=== PATIENT | female | born 1935 | race Caucasian/White ===

== ENCOUNTER 2018-06-08 14:13 | Inpatient (IN) | payer OTHER ==
[~2018-06-08 14:13] MED LIST: COZAAR100 MG PO; PANADOL MAXIMU500 MG; SYNTHROID75 MCG PO; TOPROL PO; [UNRECOGNIZED DRUG - OTHER] PO
[2018-06-10] MEDS ORDERED: TOPROL XL25 M1 PO (11:36)
[2018-06-10] MEDS ORDERED: ZYLOPRIM100 M1 PO (11:38)
[2018-06-27] MEDS ORDERED: LEVOTHYROXINE88 MCG PO (14:05)
[2018-06-27] MEDS ORDERED: TOPROL XL25 M1 PO (14:05)
[2018-06-27] MEDS ORDERED: CARTIA XT240 MG PO (14:05)
[2018-06-27] MEDS ORDERED: SIMVASTATIN40 MG PO (14:05)
[2018-06-27] MEDS ORDERED: ZYLOPRIM100 M1 PO (14:05)
== END 2018-06-27 14:42 | disposition home or self-care (01) | DRG 181 ==
LOC: MEDJ 14:13
PROC: 4A033R1 Measurement of Arterial Saturation, Peripheral, Percutaneous Approach (ICD-10-PCS; 2018-06-08)
PROC: B246ZZZ Ultrasonography of Right and Left Heart (ICD-10-PCS; 2018-06-08)
PROC: BB4BZZZ Ultrasonography of Pleura (ICD-10-PCS; 2018-06-08)
PROC: 0W9B3ZX Drainage of Left Pleural Cavity, Percutaneous Approach, Diagnostic (ICD-10-PCS; principal; 2018-06-09)
PROC: 3E0F7GC Introduction of Other Therapeutic Substance into Respiratory Tract, Via Natural or Artificial Opening (ICD-10-PCS; 2018-06-09)
PROC: 0W993ZX Drainage of Right Pleural Cavity, Percutaneous Approach, Diagnostic (ICD-10-PCS; 2018-06-12)
PROC: BW24ZZZ Computerized Tomography (CT Scan) of Chest and Abdomen (ICD-10-PCS; 2018-06-12)
PROC: BW25Y0Z Computerized Tomography (CT Scan) of Chest, Abdomen and Pelvis using Other Contrast, Unenhanced and Enhanced (ICD-10-PCS; 2018-06-23)
PROC: 0W9B3ZX Drainage of Left Pleural Cavity, Percutaneous Approach, Diagnostic (ICD-10-PCS; 2018-06-26)
DX: C78.02 Secondary malignant neoplasm of left lung (principal); J44.1 Chronic obstructive pulmonary disease with (acute) exacerbation; J91.0 Malignant pleural effusion; N17.8 Other acute kidney failure; I13.10 Hypertensive heart and chronic kidney disease without heart failure, with stage 1 through stage 4 chronic kidney disease, or unspecified chronic kidney disease; I25.10 Atherosclerotic heart disease of native coronary artery without angina pectoris; E03.8 Other specified hypothyroidism; K21.9 Gastro-esophageal reflux disease without esophagitis; M81.0 Age-related osteoporosis without current pathological fracture; M06.89 Other specified rheumatoid arthritis, multiple sites; R09.02 Hypoxemia; K44.9 Diaphragmatic hernia without obstruction or gangrene; D63.0 Anemia in neoplastic disease; N18.3 Chronic kidney disease, stage 3 (moderate); Z90.12 Acquired absence of left breast and nipple; C80.1 Malignant (primary) neoplasm, unspecified; E78.49 Other hyperlipidemia

== ENCOUNTER 2018-07-22 10:13 | Outpatient (CLI) | payer OTHER ==
[~2018-07-22 10:13] MED LIST changes: +CARTIA XT240 MG PO; +LEVOTHYROXINE88 MCG PO; +SIMVASTATIN40 MG PO; +TOPROL XL25 M1 PO; +ZYLOPRIM100 M1 PO
== END 2018-07-22 11:17 | disposition home or self-care (01) ==
LOC: RAD 10:13
DX: J43.2 Centrilobular emphysema (principal); J91.0 Malignant pleural effusion

== ENCOUNTER 2019-09-14 13:57 | Inpatient (IN) | payer OTHER ==
[~2019-09-14] VITALS: Ht 160 cm; Wt 55.8 kg
[2019-09-14] MEDS ORDERED: DILTIAZEM 24HR180 MG PO (14:34)
[2019-09-14] MEDS ORDERED: TOPROL XL50 M1 PO (14:35)
[2019-09-14] MEDS ORDERED: SYNTHROID100 MCG PO (14:35)
--- NOTE | 2019-09-14 14:35 | NUR ---
SE RECIBE FEMINA DE 84 ANOS,ALERTA,ORIENTADA EN ROWDY TRINH ESFERAS,AMBULANDO CON ASISTENCIA DE [place] , JUNTO A FAMILIAR. PACIENTE REFIERE DIFICULTAD RESPIRATORIA Y CATARRO CON EVOLUCION DE DOS FERRIS. PACIENTE PADECE DE AGUA EN PULMONES. . INTERNISTA DIMAS ASTUDILLO.
--- NOTE | 2019-09-14 15:30 | NUR ---
PTE EVALUADA POR EL DR TELLEZ QUIEN [place] EL [place]. SE ORIENTA SOBRE EL MISMO, LO CUAL PTE Y FAMILIAR REFIEREN ENTENDER. SE REALIZAN PRUEBAS DE LABORATORIO Y SE ADMINISTRAN MEDICAMENTOS MOIZ ORDEN MEDICA Y SIGUIENDO MEDIDAS ASEPTICAS. ROBB X PORTABLE NOTIFICADOS A PERSONAL DE TURNO. TERAPIAS RESPIRATORIAS Y ABG NOTIFICADAS A PERSONAL DE TURNO.
--- NOTE | 2019-09-14 17:29 | NUR ---
SE COLOCA CANULA NASAL MOIZ ORDEN MEDICA, AL MOMENTO SATURANDO 94%, SE MANTIENE BAJO OBSERVACION.
[2019-09-17] MEDS ORDERED: DILTIAZEM 24HR180 MG PO (14:26)
[2019-09-17] MEDS ORDERED: LOSARTAN POTAS100 MG PO (14:26)
[2019-09-17] MEDS ORDERED: TOPROL XL50 M1 PO (14:27)
[2019-09-17] MEDS ORDERED: ZYLOPRIM100 M1 PO (14:27)
[2019-09-17] MEDS ORDERED: LEVOTHYROXINE100 MCG PO (14:27)
== END 2019-09-17 14:44 | disposition home or self-care (01) | DRG 598 ==
LOC: ER 13:57 → MEDJ 21:06
PROVIDERS: ADMIT Internal Medicine
PROC: 4A033R1 Measurement of Arterial Saturation, Peripheral, Percutaneous Approach (ICD-10-PCS; 2019-09-14)
PROC: 3E0F7GC Introduction of Other Therapeutic Substance into Respiratory Tract, Via Natural or Artificial Opening (ICD-10-PCS; 2019-09-14)
PROC: 0W9B30Z Drainage of Left Pleural Cavity with Drainage Device, Percutaneous Approach (ICD-10-PCS; principal; 2019-09-15)
DX: C50.812 Malignant neoplasm of overlapping sites of left female breast (principal); J91.0 Malignant pleural effusion; J44.1 Chronic obstructive pulmonary disease with (acute) exacerbation; J45.41 Moderate persistent asthma with (acute) exacerbation; N17.8 Other acute kidney failure; J93.83 Other pneumothorax; N18.3 Chronic kidney disease, stage 3 (moderate); I12.9 Hypertensive chronic kidney disease with stage 1 through stage 4 chronic kidney disease, or unspecified chronic kidney disease; R09.02 Hypoxemia; Z17.0 Estrogen receptor positive status [ER+]

== ENCOUNTER 2019-10-15 10:33 | Inpatient (IN) | payer OTHER ==
[~2019-10-15] VITALS: Ht 160 cm; Wt 56.2 kg
[~2019-10-15 10:33] MED LIST changes: +DILTIAZEM 24HR180 MG PO; +LEVOTHYROXINE100 MCG PO; +LOSARTAN POTAS100 MG PO; +SYNTHROID100 MCG PO; +TOPROL XL50 M1 PO
== END 2019-10-28 18:13 | disposition home or self-care (01) | DRG 180 ==
LOC: ER 10:33 → MEDJ 17:47 → SEC-K 17:47 → MEDJ 18:54
PROVIDERS: ADMIT Internal Medicine
PROC: 4A033R1 Measurement of Arterial Saturation, Peripheral, Percutaneous Approach (ICD-10-PCS; 2019-10-15)
PROC: 3E0F7GC Introduction of Other Therapeutic Substance into Respiratory Tract, Via Natural or Artificial Opening (ICD-10-PCS; 2019-10-15)
PROC: 0W9B30Z Drainage of Left Pleural Cavity with Drainage Device, Percutaneous Approach (ICD-10-PCS; principal; 2019-10-18)
PROC: B246ZZZ Ultrasonography of Right and Left Heart (ICD-10-PCS; 2019-10-18)
PROC: BB24ZZZ Computerized Tomography (CT Scan) of Bilateral Lungs (ICD-10-PCS; 2019-10-18)
PROC: 0W9B30Z Drainage of Left Pleural Cavity with Drainage Device, Percutaneous Approach (ICD-10-PCS; 2019-10-21)
DX: C78.02 Secondary malignant neoplasm of left lung (principal); I50.43 Acute on chronic combined systolic (congestive) and diastolic (congestive) heart failure; J91.0 Malignant pleural effusion; N17.8 Other acute kidney failure; J44.1 Chronic obstructive pulmonary disease with (acute) exacerbation; J45.41 Moderate persistent asthma with (acute) exacerbation; E87.2 Acidosis; J98.19 Other pulmonary collapse; C80.1 Malignant (primary) neoplasm, unspecified; K44.9 Diaphragmatic hernia without obstruction or gangrene; I12.9 Hypertensive chronic kidney disease with stage 1 through stage 4 chronic kidney disease, or unspecified chronic kidney disease; I11.0 Hypertensive heart disease with heart failure; I08.3 Combined rheumatic disorders of mitral, aortic and tricuspid valves; N18.2 Chronic kidney disease, stage 2 (mild); D63.0 Anemia in neoplastic disease; Z85.3 Personal history of malignant neoplasm of breast; Z08 Encounter for follow-up examination after completed treatment for malignant neoplasm

== ENCOUNTER 2020-03-13 13:15 | Outpatient (CLI) | payer OTHER | END 2020-03-13 13:25 | disposition home or self-care (01) | LOC: TOM 13:15 | PROVIDERS: ATTEND Internal Medicine Hematology & Oncology | DX: C50.812 Malignant neoplasm of overlapping sites of left female breast (principal); D63.1 Anemia in chronic kidney disease; N18.4 Chronic kidney disease, stage 4 (severe); E03.8 Other specified hypothyroidism; E78.2 Mixed hyperlipidemia; Z90.12 Acquired absence of left breast and nipple ==

== ENCOUNTER 2020-05-09 07:31 | Outpatient (CLI) | payer OTHER | END 2020-05-09 07:33 | disposition home or self-care (01) | LOC: RAD 07:31 | PROVIDERS: ATTEND Internal Medicine Pulmonary Disease | DX: J43.2 Centrilobular emphysema (principal); J91.0 Malignant pleural effusion; C50.919 Malignant neoplasm of unspecified site of unspecified female breast ==

== ENCOUNTER 2020-05-30 11:23 | Outpatient (CLI) | payer OTHER | END 2020-05-30 11:33 | disposition home or self-care (01) | LOC: RAD 11:23 | PROVIDERS: ATTEND Internal Medicine | DX: R07.89 Other chest pain (principal) ==

== ENCOUNTER 2020-06-14 07:30 | Outpatient (CLI) | payer OTHER | END 2020-06-14 07:35 | disposition home or self-care (01) | LOC: RAD 07:30 | PROVIDERS: ATTEND Internal Medicine Pulmonary Disease | DX: J91.8 Pleural effusion in other conditions classified elsewhere (principal); C50.911 Malignant neoplasm of unspecified site of right female breast ==

== ENCOUNTER 2020-08-08 07:29 | Outpatient (CLI) | payer OTHER | END 2020-08-08 07:37 | disposition home or self-care (01) | LOC: TOM 07:29 | PROVIDERS: ATTEND Internal Medicine Hematology & Oncology | DX: K44.9 Diaphragmatic hernia without obstruction or gangrene (principal); C50.812 Malignant neoplasm of overlapping sites of left female breast; C78.02 Secondary malignant neoplasm of left lung; D63.1 Anemia in chronic kidney disease; E03.8 Other specified hypothyroidism; E78.2 Mixed hyperlipidemia; I10 Essential (primary) hypertension; Z90.12 Acquired absence of left breast and nipple ==

== ENCOUNTER 2020-12-11 07:14 | Outpatient (CLI) | payer OTHER | END 2020-12-11 07:34 | disposition home or self-care (01) | LOC: RAD 07:14 | PROVIDERS: ATTEND Internal Medicine Hematology & Oncology | DX: I10 Essential (primary) hypertension (principal); Z12.31 Encounter for screening mammogram for malignant neoplasm of breast; C78.02 Secondary malignant neoplasm of left lung; E03.8 Other specified hypothyroidism; E78.2 Mixed hyperlipidemia; Z90.12 Acquired absence of left breast and nipple; C15.4 Malignant neoplasm of middle third of esophagus; C78.01 Secondary malignant neoplasm of right lung; J91.8 Pleural effusion in other conditions classified elsewhere ==

== ENCOUNTER 2021-09-13 07:14 | Outpatient (CLI) | payer OTHER | END 2021-09-13 07:19 | disposition home or self-care (01) | LOC: RAD 07:14 | PROVIDERS: ATTEND Internal Medicine | DX: J90 Pleural effusion, not elsewhere classified (principal) ==

== ENCOUNTER 2021-12-31 13:48 | Inpatient (IN) | payer OTHER ==
[~2021-12-31] VITALS: Ht 160 cm; Wt 48.5 kg
[2022-01-01] MEDS ORDERED: PANTOPRAZOLE SO40 MG (11:14)
[2022-01-01] MEDS ORDERED: ONDANSETRON HCL8 MG (11:14)
[2022-01-01] MEDS ORDERED: GABAPENTIN100 M2 (11:14)
[2022-01-01] MEDS ORDERED: EXEMESTANE25 MG (11:14)
[2022-01-01] MEDS ORDERED: OMEPRAZOLE20 MG (11:14)
[2022-01-01] MEDS ORDERED: [UNRECOGNIZED DRUG - OTHER] (11:15)
[2022-01-01] MEDS ORDERED: ABANEU-SL TABL1 EACH (11:15)
[2022-01-01] MEDS ORDERED: FOLIVANE-F CAP1 EACH (11:15)
[2022-01-01] MEDS ORDERED: PRE PROTEIN 2030 ML (11:15)
[2022-01-01] MEDS ORDERED: ALPRAZOLAM0.5 MG (11:16)
[2022-01-01] MEDS ORDERED: CALCITRIOL0.25 MCG (11:16)
== END 2022-01-03 23:41 | disposition home or self-care (01) | DRG 375 ==
LOC: ER 13:48 → SURH 23:31
PROVIDERS: ADMIT Internal Medicine; ATTEND Internal Medicine
PROC: 30233N1 Transfusion of Nonautologous Red Blood Cells into Peripheral Vein, Percutaneous Approach (ICD-10-PCS; principal; 2022-01-01)
DX: C78.6 Secondary malignant neoplasm of retroperitoneum and peritoneum (principal); D63.0 Anemia in neoplastic disease; N17.8 Other acute kidney failure; E86.0 Dehydration; J91.0 Malignant pleural effusion; T45.1X5A Adverse effect of antineoplastic and immunosuppressive drugs, initial encounter; D53.0 Protein deficiency anemia; E87.5 Hyperkalemia; C50.912 Malignant neoplasm of unspecified site of left female breast; I12.9 Hypertensive chronic kidney disease with stage 1 through stage 4 chronic kidney disease, or unspecified chronic kidney disease; N18.32 Chronic kidney disease, stage 3b; J44.9 Chronic obstructive pulmonary disease, unspecified; Z99.81 Dependence on supplemental oxygen

== ENCOUNTER 2022-05-22 14:36 | Inpatient (IN) | payer OTHER ==
[~2022-05-22] VITALS: Ht 157.5 cm; Wt 59.0 kg
[~2022-05-22 14:36] MED LIST changes: +ABANEU-SL TABL1 EACH; +ALPRAZOLAM0.5 MG; +CALCITRIOL0.25 MCG; +EXEMESTANE25 MG; +FOLIVANE-F CAP1 EACH; +GABAPENTIN100 M2; +OMEPRAZOLE20 MG; +ONDANSETRON HCL8 MG; +PANTOPRAZOLE SO40 MG; +PRE PROTEIN 2030 ML; +[UNRECOGNIZED DRUG - OTHER]
[2022-05-29] MEDS ORDERED: CLONIDINE HCL0.2 MG (08:21)
[2022-05-29] MEDS ORDERED: DILTIAZEM 24HR240 MG (08:22)
[2022-05-29] MEDS ORDERED: PANTOPRAZOLE SO40 MG (08:23)
[2022-05-29] MEDS ORDERED: GABAPENTIN100 M2 (08:23)
[2022-05-29] MEDS ORDERED: LOSARTAN POTAS100 MG (08:23)
[2022-05-29] MEDS ORDERED: VERZENIO50 MG (08:23)
== END 2022-05-30 19:04 | disposition home or self-care (01) | DRG 190 ==
LOC: ER 14:36 → ICU-2 21:27 → SURG 05-26 15:45
PROVIDERS: ADMIT Internal Medicine; ATTEND Internal Medicine
PROC: B246YZZ Ultrasonography of Right and Left Heart using Other Contrast (ICD-10-PCS; 2022-05-22)
PROC: BW24ZZZ Computerized Tomography (CT Scan) of Chest and Abdomen (ICD-10-PCS; 2022-05-22)
PROC: BW40ZZZ Ultrasonography of Abdomen (ICD-10-PCS; 2022-05-23)
PROC: 3E0F7SF Introduction of Other Gas into Respiratory Tract, Via Natural or Artificial Opening (ICD-10-PCS; principal; 2022-05-24)
PROC: 02HV33Z Insertion of Infusion Device into Superior Vena Cava, Percutaneous Approach (ICD-10-PCS; 2022-05-27)
PROC: 4A12X4Z Monitoring of Cardiac Electrical Activity, External Approach (ICD-10-PCS; 2022-05-27)
PROC: 0W9G3ZZ Drainage of Peritoneal Cavity, Percutaneous Approach (ICD-10-PCS; 2022-05-29)
PROC: 0W993ZZ Drainage of Right Pleural Cavity, Percutaneous Approach (ICD-10-PCS; 2022-05-29)
DX: J44.1 Chronic obstructive pulmonary disease with (acute) exacerbation (principal); J96.01 Acute respiratory failure with hypoxia; I50.33 Acute on chronic diastolic (congestive) heart failure; Z68.1 Body mass index [BMI] 19.9 or less, adult; N17.9 Acute kidney failure, unspecified; C78.6 Secondary malignant neoplasm of retroperitoneum and peritoneum; J91.0 Malignant pleural effusion; I13.0 Hypertensive heart and chronic kidney disease with heart failure and stage 1 through stage 4 chronic kidney disease, or unspecified chronic kidney disease; R63.0 Anorexia; C50.912 Malignant neoplasm of unspecified site of left female breast; N18.30 Chronic kidney disease, stage 3 unspecified; E87.8 Other disorders of electrolyte and fluid balance, not elsewhere classified; D63.0 Anemia in neoplastic disease; Z20.822 Contact with and (suspected) exposure to COVID-19

== ENCOUNTER 2022-07-01 06:53 | Emergency (ER) | payer OTHER ==
[~2022-07-01] VITALS: Ht 160 cm; Wt 46.3 kg
[~2022-07-01 06:53] MED LIST changes: +CLONIDINE HCL0.2 MG; +DILTIAZEM 24HR240 MG; +LOSARTAN POTAS100 MG; +VERZENIO50 MG
== END 2022-07-01 14:41 | disposition home or self-care (01) ==
LOC: ER 06:53
DX: C50.919 Malignant neoplasm of unspecified site of unspecified female breast (principal); J91.0 Malignant pleural effusion; R06.02 Shortness of breath; I48.91 Unspecified atrial fibrillation; I10 Essential (primary) hypertension; Z20.822 Contact with and (suspected) exposure to COVID-19; C79.9 Secondary malignant neoplasm of unspecified site

== ENCOUNTER 2022-07-06 06:32 | Emergency (ER) | payer OTHER ==
[~2022-07-06] VITALS: Ht 160 cm; Wt 46.7 kg
== END 2022-07-06 13:41 | disposition home or self-care (01) ==
LOC: ER 06:32
DX: R06.02 Shortness of breath (principal); J44.1 Chronic obstructive pulmonary disease with (acute) exacerbation; J98.8 Other specified respiratory disorders; C50.912 Malignant neoplasm of unspecified site of left female breast; C78.6 Secondary malignant neoplasm of retroperitoneum and peritoneum; I50.9 Heart failure, unspecified; N18.9 Chronic kidney disease, unspecified; Z20.822 Contact with and (suspected) exposure to COVID-19; Z91.011 Allergy to milk products